=== PATIENT | female | born 1970 | race American Indian/Alaskan Native ===

== ENCOUNTER 2018-07-09 10:49 | Outpatient (CLI) | payer OTHER ==
[~2018-07-09 10:49] MED LIST: ATENOLOL25 MG PO; ULTRACET PO
== END 2018-07-09 11:00 | disposition home or self-care (01) ==
LOC: MAMO-SONO 10:49
DX: Z12.31 Encounter for screening mammogram for malignant neoplasm of breast (principal); N64.89 Other specified disorders of breast; R10.2 Pelvic and perineal pain; D25.9 Leiomyoma of uterus, unspecified

== ENCOUNTER 2018-07-24 11:08 | Outpatient (CLI) | payer OTHER | END 2018-07-24 11:21 | disposition home or self-care (01) | LOC: SONOGRAMA 11:08 → MAMO-SONO 11:15 → SONOGRAMA 11:21 | DX: N84.0 Polyp of corpus uteri (principal); D25.9 Leiomyoma of uterus, unspecified ==